=== PATIENT | female | born 1975 | race Caucasian/White ===

== ENCOUNTER 2016-06-19 01:37 | Observation (INO) ==
[2016-06-19] MEDS ORDERED: ASPIRIN PO STA (01:46)
[2016-06-19] MEDS ORDERED: ZOFRAN IV ONE ×2 (01:47→02:12)
--- NOTE | 2016-06-19 01:47 | PROVIDER DOCUMENTATION ---
HPI-Chest Pain <AriannaEleazar TonnyFrancis - Last Filed: 06/19/16 05:07> - General Source: patient - History of Present Illness-CP Location: reports: central Chest Pain Radiation: reports: shoulders (SHOULDER BLADES) Quality of Pain: reports: none Severity in ED: moderate Onset/Duration: 4-6 hours ago Timing: still present Context/Activities at Onset: reports: light activity Modifying Factors: improves with: nothing Similar Symptoms Previously?: No Recently Seen Here or By Another Healthcare Provider: No <Triston Mcintyre - Last Filed: 06/21/16 14:41> - General Chief Complaint: Chest Pain Stated Complaint: CHEST PAIN Time Seen by Provider: 06/19/16 01:41 Allergies/Adverse Reactions: Patient Allergies Allergy/AdvReac Type Severity Reaction Status Date / Time No Known Allergies Allergy Verified 06/19/16 01:44 Home Medications: Levothyroxine Sodium [Synthroid] 88 mcg PO DAILY 06/19/16 Omeprazole 20 mg PO DAILY 06/19/16 - History of Present Illness-CP Nature of Presenting Problem: 41 YOWF PRESENTS TO ED WITH C/O C/P THAT STARTED AROUND 5:30 THIS EVENING. PT STATES ITS MORE LIKE PRESSURE IN THE CENTER OF HER CHEST, THAT RADIATES THROUGH TO HER SHOULDER BLADES. PT IS NAUSEATED AND HAS HAD 1 EPISODE OF VOMITING IN THE ED. (Triston Mcintyre) Review of Systems - Adult - REVIEW OF SYSTEMS - ADULT Constitutional: denies: chills, fever Eyes: reports: no symptoms reported Ears, Nose, Mouth & Throat: reports: no symptoms reported Cardiovascular: reports: chest pain. denies: palpitations, syncope Respiratory: denies: cough, shortness of breath, wheezing Gastrointestinal: reports: nausea, vomiting. denies: abdominal pain, diarrhea Genitourinary: reports: no symptoms reported Musculoskeletal: denies: back pain, neck pain Integumentary: reports: no symptoms reported Neurological: denies: dizziness/vertigo, headache/migraines, syncope Psychiatric: reports: no symptoms reported Endocrine: reports: no symptoms reported Hematologic/Lymphatic: reports: no symptoms reported Allergic/Immunologic: reports: no symptoms reported All Other Systems: Reviewed and Negative <Triston Mcintyre - Last Filed: 06/21/16 14:41> Past History - Adult - PAST MEDICAL HISTORY-ADULT Review of Records: reports: Nursing Assessment Review, Medications Reviewed Gastrointestinal: reports: GERD Endocrine/Immune: reports: thyroid disorder - PRIOR SURGERIES/PROCEDURES Surgical/Procedure History: reports: - IMMUNIZATION STATUS Childhood Immunizations: See Nurse Assessment Flu Vaccine: See Nurse Assessment - SOCIAL HISTORY Smoking: denies Substance Use: denies Alcohol Use Frequency: never Living Situation: family <Triston Mcintyre - Last Filed: 06/21/16 14:41> Physical Exam-General - CONSTITUTIONAL General Appearance: alert, mild distress - EYES Eyes: PERRL/EOMI, pink conjunctivae - HEAD, EARS, NOSE, MOUTH & THROAT HENMT: normocephalic/atraumatic, moist mucous membranes - NECK Neck: non-tender, full range of motion, supple - RESPIRATORY Respiratory: chest non-tender, lungs clear, normal breath sounds - CARDIOVASCULAR Cardiovascular: normal peripheral pulses, regular rate, rhythm - GASTROINTESTINAL (ABDOMEN) Abdominal Exam: normal bowel sounds, non tender, soft - LYMPHATIC Lymphatic: no adenopathy - MUSCULOSKELETAL Back Exam: normal inspection, no CVA tenderness, no vertebral tenderness Extremity: normal range of motion, non-tender - SKIN Integumentary: normal color, normal turgor, warm/dry - NEUROLOGIC Neurologic: grossly normal - PSYCHIATRIC Psych/Mental Status: oriented x 3 <Triston Mcintyre - Last Filed: 06/21/16 14:41> Progress - REASSESSMENT Reassessment #1 Time Reassessed: 04:06 (pain and nausea much better) Status: improving - CT/MRI 1 CT Study: Angiogram (no PE or other lung pathology) Impression: Normal 2 CT Study: Abdomen (small left ovarian cyst, ( i thought I could see 2 tiny gallstones)) - CONSULTS/PCP/HOSPITALIST Notification #1 *Consult/PCP/Hospitalist*: Dr León Time Discussed: 05:09 Consult Disposition: Admit <Eleazar Keller - Last Filed: 06/19/16 05:07> - EKG 1 Time of EKG reading by physician:: 01:41 EKG Read and Signed by:: Eleazar Keller EKG Interpretation (*Must complete 3 of following elements*): Abnormal Rate: 93 Rhythm: SINUS RHYTHM W/ SHORT FL [place]: normal Comments: LOW VOLTAGE QRS. - XRAY 1 XRAY: Bilateral XRAY Study: Chest XRAY Interpretation: NORMAL <Triston Mcintyre - Last Filed: 06/21/16 14:41> - PLAN OF CARE/RESULTS Progress/Plan/Lab Results: Laboratory Tests 06/19/16 06/19/16 06/19/16 01:50 01:50 01:50 WBC RBC Hgb Hct MCV MCH MCHC RDW Std Deviation Plt Count MPV Immature Gran % (Auto) Neut % (Auto) Lymph % (Auto) [place] % (Auto) Eos % (Auto) Baso % (Auto) Immature Gran # (Auto) Neut # (Auto) Lymph # (Auto) [place] # (Auto) Eos # (Auto) Baso # (Auto) PT INR APTT (Factor Assay) D-Dimer Sodium 139 Potassium 4.0 Chloride 101 Carbon Dioxide 25 Anion Gap 13 BUN 12 Creatinine 0.8 Estimated GFR/1.73 m2 > 60 BUN/Creatinine Ratio 15 Glucose 143 H Calculated Osmolality 280 Calcium 9.3 Magnesium 2.3 Total Bilirubin 1.10 H AST 501 H ALT 227 H Alkaline Phosphatase 213 H Creatine Kinase 119 Troponin T < 0.010 Twi-P-Xzcmrgmcuwm Pept 68 Total Protein 8.1 Albumin 4.3 Globulin 4.0 Albumin/Globulin Ratio 1.0 Lipase 06/19/16 06/19/16 06/19/16 01:50 01:50 01:50 WBC 14.30 H RBC 5.04 Hgb 13.2 Hct 41.3 MCV 81.9 MCH 26.2 L MCHC 32.0 L RDW Std Deviation 15.5 H Plt Count 443 H MPV 9.6 Immature Gran % (Auto) 0.2 Neut % (Auto) 78.7 H Lymph % (Auto) 15.0 L [place] % (Auto) 5.9 Eos % (Auto) 0.1 Baso % (Auto) 0.1 Immature Gran # (Auto) 0.03 Neut # (Auto) 11.26 H Lymph # (Auto) 2.14 [place] # (Auto) 0.84 H Eos # (Auto) 0.01 Baso # (Auto) 0.02 PT 12.5 INR 0.90 APTT (Factor Assay) 25.4 D-Dimer 2.15 H Sodium Potassium Chloride Carbon Dioxide Anion Gap BUN Creatinine Estimated GFR/1.73 m2 BUN/Creatinine Ratio Glucose Calculated Osmolality Calcium Magnesium Total Bilirubin AST ALT Alkaline Phosphatase Creatine Kinase Troponin T Fvi-I-Dlsjwoccjtx Pept Total Protein Albumin Globulin Albumin/Globulin Ratio Lipase 31 Orders Category Date Time Status Admit - [facility] Routine AdmDCTranf 06/19/16 05:01 Ordered Activity - Bed Rest with BRP ORDERED Care 06/19/16 05:00 Active Call Admitting on Arrival AT ADMISSION Care 06/19/16 05:01 Active Cardiac Monitoring DIRECTED Care 06/19/16 01:46 Active Saline Loc NOW Care 06/19/16 01:46 Active Vital Signs Order ARRIVAL TO ROOM Care 06/19/16 05:00 Active NPO Diet 06/19/16 05:02 Active ABD/PELVIS/PULM ARTERIES [CT] Stat Exams 06/19/16 03:02 Taken CHEST-2 VIEWS [RAD] Stat Exams 06/19/16 01:46 Taken CBC WITH ELECTRONIC DIFF [HEME] Stat Lab 06/19/16 01:50 Completed CK PROFILE [SP CHEM] Stat Lab 06/19/16 01:50 Completed COMPREHENSIVE METABOLIC PANEL [CHEM] Stat Lab 06/19/16 01:50 Completed D-DIMER PL [COAG] Stat Lab 06/19/16 01:50 Completed LIPASE [CHEM] Stat Lab 06/19/16 01:50 Completed MAGNESIUM [CHEM] Stat Lab 06/19/16 01:50 Completed PRO B-NATRIURETIC PEPTIDE Stat Lab 06/19/16 01:50 Com[address]IME WITH INR PL [COAG] Stat Lab 06/19/16 01:[address] [COAG] Stat Lab 06/19/16 01:50 Completed TROPONIN T Stat Lab 06/19/16 01:50 Completed 0.9% Sodium Chloride Inj [Ns] 1,000 ml Med 06/19/16 05:00 Active IV 100 mls/hr Aspirin Med 06/19/16 01:46 Discontinued 325 mg PO STAT STA Hydromorphone [Dilaudid] Med 06/19/16 03:02 Discontinued 1 mg IV NOW ONE Hydromorphone [Dilaudid] Med 06/19/16 05:00 Active 1 mg IV Q2HR PRN Morphine Med 06/19/16 01:52 Discontinued 4 mg IV NOW ONE Morphine Med 06/19/16 02:12 Discontinued 4 mg IV NOW ONE Ondansetron [Zofran] Med 06/19/16 01:47 Discontinued 4 mg IV NOW ONE Ondansetron [Zofran] Med 06/19/16 02:12 Discontinued 4 mg IV NOW ONE Ondansetron [Zofran] Med 06/19/16 05:00 Active 4 mg IV Q4H PRN PRN Promethazine [Phenergan] Med 06/19/16 05:03 Discontinued 25 mg IV NOW ONE Sodium Chloride 0.9% Med 06/19/16 05:03 Discontinued 10 ml INJ NOW ONE EKG [EKG] Stat Ther 06/19/16 01:45 Ordered Transfer/Admit Order [TRANSFER] Routine Transfer 06/19/16 05:02 Ordered Vital Signs Temp Pulse Resp BP Pulse Ox 06/19/16 02:15 52 L 21 134/81 100 06/19/16 01:40 98.1 F 70 20 133/89 100 No Known Allergies Allergy (Verified 06/19/16 01:44) Levothyroxine Sodium [Synthroid] 88 mcg PO DAILY 06/19/16 Omeprazole 20 mg PO DAILY 06/19/16 Sucralfate [Carafate] 1 gm PO TID 06/19/16 Dietary Diet NPO Start SunJun 19 050 Laboratory 06/19/16 06/19/16 06/19/16 01:50 01:50 01:50 WBC 14.30 H RBC 5.04 Hgb 13.2 Hct 41.3 MCV 81.9 MCH 26.2 L MCHC 32.0 L RDW Std Deviation 15.5 H Plt Count 443 H MPV 9.6 Immature Gran % (Auto) 0.2 Neut % (Auto) 78.7 H Lymph % (Auto) 15.0 L [place] % (Auto) 5.9 Eos % (Auto) 0.1 Baso % (Auto) 0.1 Immature Gran # (Auto) 0.03 Neut # (Auto) 11.26 H Lymph # (Auto) 2.14 [place] # (Auto) 0.84 H Eos # (Auto) 0.01 Baso # (Auto) 0.02 PT 12.5 INR 0.90 APTT (Factor Assay) 25.4 D-Dimer 2.15 H Sodium Potassium Chloride Carbon Dioxide Anion Gap BUN Creatinine Estimated GFR/1.73 m2 BUN/Creatinine Ratio Glucose Calculated Osmolality Calcium Magnesium Total Bilirubin AST ALT Alkaline Phosphatase Creatine Kinase Troponin T Pxa-Z-Pfnpqkzkozz Pept Total Protein Albumin Globulin Albumin/Globulin Ratio Lipase 31 06/19/16 06/19/16 06/19/16 01:50 01:50 01:50 WBC RBC Hgb Hct MCV MCH MCHC RDW Std Deviation Plt Count MPV Immature Gran % (Auto) Neut % (Auto) Lymph % (Auto) [place] % (Auto) Eos % (Auto) Baso % (Auto) Immature Gran # (Auto) Neut # (Auto) Lymph # (Auto) [place] # (Auto) Eos # (Auto) Baso # (Auto) PT INR APTT (Factor Assay) D-Dimer Sodium 139 Potassium 4.0 Chloride 101 Carbon Dioxide 25 Anion Gap 13 BUN 12 Creatinine 0.8 Estimated GFR/1.73 m2 > 60 BUN/Creatinine Ratio 15 Glucose 143 H Calculated Osmolality 280 Calcium 9.3 Magnesium 2.3 Total Bilirubin 1.10 H AST 501 H ALT 227 H Alkaline Phosphatase 213 H Creatine Kinase 119 Troponin T < 0.010 Rup-W-Zovfgnbmsle Pept 68 Total Protein 8.1 Albumin 4.3 Globulin 4.0 Albumin/Globulin Ratio 1.0 Lipase (Eleazar Keller) Departure - Departure Time of Disposition Order: 05:08 Certified Medical Emergency: Emergent <Eleazar Keller - Last Filed: 06/19/16 05:07> - Departure Time of Disposition Order: 19:23 Certified Medical Emergency: Emergent <Triston Mcintyre - Last Filed: 06/21/16 14:41> - Departure DIAGNOSIS: Chest pain Qualifiers: Chest pain type: unspecified Qualified Code(s): R07.9 - Chest pain, unspecified Disposition: ADMITTED INPATIENT 09 Condition: Fair Attestation - Scribe Verification/Attestation Scribe:: Triston Mcintyre Acting as Scribe for:: Eleazar Keller Scribe documention review:: This chart was documented by a scribe and accurately reflects the service the provider performed and the decisions made by the provider. <Triston Mcintyre - Last Filed: 06/21/16 14:41> Physician Attestation
[2016-06-19] MEDS ORDERED: MORPHINE IV ONE ×2 (01:52→02:12)
[2016-06-19 02:04] LABS: MANUAL DIFF NEEDED? NO
[2016-06-19 02:14] LABS: BASO% 0.1 % (0.0-0.8); EOS# 0.01 X1000 (0.0-0.7); EOS% 0.1 % (0.0-10.0); HEMATOCRIT 41.3 % (37.0-47.0); HEMOGLOBIN 13.2 g/dL (12.0-16.0); IMM GRAN# 0.03 X1000 (0.0-0.04); IMM GRAN% 0.2 % (0.0-0.5); LYMPH# 2.14 X1000 (1.2-3.4); MCH 26.2 PG (27-31); MCV 81.9 FL (81-99); MONO# 0.84 X1000 (0.11-0.59); MONO% 5.9 % (1.7-9.3); MPV 9.6 FL (7.4-10.4); NEUT% 78.7 % (42.2-75.2); PLT 443 X1000 (130-400); RBC 5.04 XMIL (4.2-5.4)
[2016-06-19 02:36] LABS: INR 0.9 (0.86-1.15); PROTIME 12.5 Seconds (12.1-15.5)
[2016-06-19 02:37] LABS: PTT PL 25.4 Seconds (22.6-43.9)
[2016-06-19 02:54] LABS: AGAP 13; ALBUMIN 4.3 g/dL (3.5-5.0); ALKALINE PHOSPHATASE 213 U/L (32-104); BUN 12 mg/dL (8-22); CALCIUM 9.3 mg/dL (8.8-10.2); CHLORIDE 101 mmol/L (98-107); CK PROFILE 119 U/L (24-173); COSMO 280; GOT 501 U/L (10-30); GPT 227 U/L (10-36); MAGNESIUM 2.3 mg/dL (1.5-2.7); SODIUM 139 mmol/L (136-145); TCO2 25 mmol/L (25-35); TOTAL PROTEIN 8.1 g/dL (6.3-8.3)
[2016-06-19] MEDS ORDERED: DILAUDID IV ONE ×2 (03:02→05:11)
[2016-06-19] MEDS ORDERED: DILAUDID IV PRN (05:00)
[2016-06-19] MEDS ORDERED: ZOFRAN IV PRN (05:00)
[2016-06-19] MEDS ORDERED: SODIUM CHLORIDE 0.9% INJ ONE (05:03)
[2016-06-19] MEDS ORDERED: PHENERGAN IV ONE (05:03)
--- NOTE | 2016-06-19 05:32 | EKG Report ---
Test Performed on : 06/19/2016 01:40:40 AM Test Reason : ER10 Blood Pressure : / mmHG Vent. Rate : 093 BPM Atrial Rate : 093 BPM P-R Int : 106 ms QRS Dur : 070 ms QT Int : 376 ms P-R-T Axes : 030 032 046 degrees QTc Int : 467 ms Sinus rhythm. with short [place] Low voltage QRS Cannot rule out Anterior infarct , age undetermined Abnormal ECG No previous ECGs available Unconfirmed Result
--- NOTE | 2016-06-19 07:31 | Diag Imaging Result Document ---
PROCEDURE NAME: ABD/PELVIS/PULM ARTERIES - 06/19/2016 CT CHEST, ABDOMEN AND PELVIS WITH INTRAVENOUS CONTRAST: TECHNIQUE: Dose reduction technique not used. COMPARISON: No comparison films. CT CHEST WITH CONTRAST: FINDINGS: No thoracic aortic aneurysm or dissection. Normal opacification of the pulmonary arteries and their major branches. No pleural effusions. There are calcified subcarinal lymph nodes. No consolidation. No bronchiectasis. No lung mass. IMPRESSION: 1. No aortic aneurysm or dissection. 2. No pulmonary emboli. 3. No pneumonia. CT ABDOMEN AND PELVIS AND PELVIS WITH INTRAVENOUS CONTRAST: FINDINGS: There is mild fatty infiltration of the liver. No focal hepatic abnormalities. Normal spleen, pancreas, and adrenal glands. The gallbladder is mildly distended. No calcified stones or adjacent inflammation. Normal enhancement of the kidneys. No hydronephrosis. No aortic aneurysm or dissection. No bowel obstruction. Normal appendix. No abscess. There is a 3.2 cm left ovarian cyst. Normal right ovary and uterus. No free fluid in the pelvis. The urinary bladder is moderately distended and appears normal. IMPRESSION: 1. Fatty infiltration of the liver. 2. There is 3.2 cm left ovarian cyst. A preliminary report was given at 4:30 a.m.
--- NOTE | 2016-06-19 07:44 | Diag Imaging Result Document ---
PROCEDURE NAME: CHEST-2 VIEWS - 06/19/2016 FRONTAL AND LATERAL CHEST, TWO VIEWS: FINDINGS: The lungs are well expanded. The heart is not enlarged. The vessels are not distended. No pneumonia. No pleural effusions. IMPRESSION: No acute abnormality.
[2016-06-19] MEDS: DEMEROL IV PRN ×2 (09:09→18:35)
[2016-06-19] MEDS: NS 1,000 ML IV SCH ×3 (09:13→18:35)
[2016-06-19] MEDS: ROCEPHIN 1 GM/NS 50 ML IV SCH (09:14)
[2016-06-19] MEDS ORDERED: SOLU-MEDROL IV ONE (09:24)
[2016-06-19] MEDS ORDERED: BENADRYL IM ONE (09:24)
--- NOTE | 2016-06-19 15:07 | HISTORY AND PHYSICAL ---
CHIEF COMPLAINT: Substernal chest pain and vomiting. PRESENT ILLNESS: This is the 1st recent [facility] admission for this 41-year-old white female who had several episodes of vomiting this morning, but no hematemesis. She has had no fever. She presented to the emergency room where evaluation revealed a normal CT of her abdomen and pelvis except for mildly enlarged gallbladder. There were laboratory abnormalities including a white blood count elevated at 14,300 and abnormal liver functions with total bilirubin 1.1, AST 501, ALT 227, alkaline phosphatase 213. BUN was 12 and creatinine 0.8. Glucose was 143. She is believed to have acute cholecystitis and is admitted for treatment to relieve pain, intravenous antibiotics, and for surgical consultation. PAST MEDICAL HISTORY: No recent hospitalizations or surgery. She had excision of a ganglion cyst on the left wrist by Dr. Stallings. PRESENT MEDICATIONS: Synthroid 88 mcg 1 daily. ALLERGIES: None known. REVIEW OF SYSTEMS: No recent vomiting until the present illness. She was feeling well yesterday. SOCIAL HISTORY: and lives with her . There is no history of smoking or alcohol usage. PHYSICAL EXAMINATION: VITAL SIGNS: Temperature 97.7 degrees, heart rate 57, respirations 16, blood pressure 150/83, O2 saturation 100% on room air. GENERAL: Patient is a well-developed, well-nourished, white female, in no apparent distress. Initially in the emergency room Dilaudid did not relieve the pain. She was then given Demerol 75 mg IV which adequately provided pain relief. Zofran helped the nausea. HEENT: Pupils equal, round, and reactive to light. Pharynx benign with no erythema or exudate. NECK: Supple with no mass or lymphadenopathy. HEART: Regular in rate and rhythm with no murmur, rub, or gallop. There is no chest wall tenderness to palpation. ABDOMEN: Soft with no mass or organomegaly. EXTREMITIES: No cyanosis, clubbing, or edema. RECTAL AND GENITALIA: Deferred. IMPRESSIONS: 1. Possible acute cholecystitis. 2. Chest pain. 3. Elevation in liver function study. PLAN: Admit for further evaluation and surgical consultation with Dr. Jin.
--- NOTE | 2016-06-19 19:23 | CONSULTATION ---
DATE OF CONSULTATION: 06/19/2016 HISTORY OF PRESENT ILLNESS: Ms. Linda Umanzor is a 41-year-old, white female patient of Dr. 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 Laboratory data was performed. She had an elevated white count of 14 and her liver function tests were elevated so she underwent a CT scan of her abdomen and pelvis which suggested a mildly enlarged gallbladder but there was a question of whether there were any stones. She was admitted to Dr. Comer for further treatment of her symptoms and we were asked to evaluate her for possible cholecystectomy. PAST MEDICAL HISTORY: Excision of a ganglion cyst left wrist by Dr. Stallings. MEDICATIONS: Synthroid. ALLERGIES: No known drug allergies. SOCIAL HISTORY: She is and lives with her . She had her sisters at the bedside. She does not smoke or use alcohol. REVIEW OF SYSTEMS: A 14-point review of systems was performed. She does have a history of gastroesophageal reflux and she is on Protonix. She also took some Carafate yesterday. PHYSICAL EXAMINATION: General: Ms. Umanzor is overweight. She is a middle aged female. She is in no acute distress. HEENT: No jaundice. No oral lesions. Satisfactory dentition. No cervical or supraclavicular lymphadenopathy. Heart: Regular rate. Lungs: Clear to auscultation and percussion bilaterally. Abdomen: Soft. She is only mildly tender in the upper abdomen. There is no palpable mass. No previous scar. No evidence of hernia. No costovertebral tenderness. Rectal/Vaginal Examinations: Not performed. She does have palpable peripheral pulses. No peripheral edema. Neurological: She is alert and oriented x3, and appropriate. LABS: Her liver function tests were slightly elevated. A CT scan of her abdomen and pelvis suggested a slightly enlarged gallbladder with questionable stones. They were not reported by the radiologist. IMPRESSION: Chronic cholecystitis which is symptomatic. PLAN: Dr. Comer is going to check liver function test tomorrow. An EKG in the ER seemed to be normal. If her symptoms persist, we will proceed with laparoscopic cholecystectomy tomorrow early afternoon. I have discussed the procedure in detail with her and her family at the bedside including its risks of bleeding, infection, injury to the extrahepatic bile ducts requiring reoperation, conversion of laparoscopic to open cholecystectomy, bile leak requiring reoperation for drainage, injury to intra-abdominal contents for trocar placement. She understands the need for surgery and its risks, and she wants to proceed. We will allow her to eat tonight and make her NPO after midnight.
[2016-06-20] MEDS: NS 1,000 ML IV SCH ×4 (05:10→16:43)
[2016-06-20 06:53] LABS: MANUAL DIFF NEEDED? NO
[2016-06-20 06:55] LABS: BASO% 0.1 % (0.0-0.8); EOS# 0.04 X1000 (0.0-0.7); EOS% 0.3 % (0.0-10.0); HEMOGLOBIN 10.8 g/dL (12.0-16.0); IMM GRAN# 0.02 X1000 (0.0-0.04); IMM GRAN% 0.1 % (0.0-0.5); LYMPH# 3.87 X1000 (1.2-3.4); LYMPH% 26.6 % (20.5-51.1); MCH 25.9 PG (27-31); MCHC 30.9 g/dL (33-37); MCV 83.9 FL (81-99); MONO# 1.05 X1000 (0.11-0.59); MONO% 7.2 % (1.7-9.3); MPV 9.7 FL (7.4-10.4); NEUT% 65.7 % (42.2-75.2); PLT 391 X1000 (130-400); RBC 4.17 XMIL (4.2-5.4)
[2016-06-20 07:10] LABS: ALBUMIN 3.5 g/dL (3.5-5.0); DIRECT BILIRUBIN 0.2 mg/dL (0.00-0.20); TOTAL BILIRUBIN 0.55 mg/dL (0.20-1.00)
--- NOTE | 2016-06-20 08:13 | PROGRESS NOTE ---
DATE: 06/20/2016 VITAL SIGNS: Temperature 97.8 degrees, heart rate 65, respirations 21, blood pressure 126/68, O2 saturation 98% on room air. LABORATORY: White blood count 14,500, hematocrit 35. AST improved but elevated at 185. ALT 245. Alkaline phosphatase 199. Amylase 341. EXAMINATION: Mild epigastric tenderness. She rested fairly well last night and required 1 dose of pain medication, Demerol. She has a little pain into her right back this morning but no nausea. Discussion was made with Dr. Jin last night. Laparoscopic cholecystectomy is planned for today.
[2016-06-20] MEDS: ROCEPHIN 1 GM/NS 50 ML IV SCH (08:32)
[2016-06-20] MEDS ORDERED: SENSORCAINE 0.25%/EPI 1:200,000 ONE (12:34)
[2016-06-20] MEDS ORDERED: LR 1,000 ML ONE (12:35)
[2016-06-20] MEDS ORDERED: SODIUM CHLORIDE 0.9% ONE (12:35)
[2016-06-20] MEDS ORDERED: FENTANYL ONE (14:29)
[2016-06-20] MEDS ORDERED: DIPRIVAN 1% ONE (14:29)
--- NOTE | 2016-06-20 15:23 | Diag Imaging Result Document ---
PROCEDURE NAME: OPERATIVE CHOLANGIOGRAM - 06/20/2016 INTRAOPERATIVE CHOLANGIOGRAM, 2 VIEWS: FINDINGS: There are no filling defects and no apparent obstruction to passage of contrast. IMPRESSION: No definite evidence of retained stones.
[2016-06-20] MEDS ORDERED: XYLOCAINE-MPF 2% ONE (15:30)
[2016-06-20] MEDS ORDERED: TORADOL ONE (15:30)
[2016-06-20] MEDS ORDERED: ZOFRAN ONE (15:30)
[2016-06-20] MEDS ORDERED: DECADRON ONE (15:31)
[2016-06-20] MEDS ORDERED: LR 2,000 ML ONE (15:31)
[2016-06-20] MEDS ORDERED: ANESTHESIA PB SET 88 IN 5742 ONE (15:31)
[2016-06-20] MEDS: MORPHINE ONE ×2 (15:35→15:47)
[2016-06-20] MEDS ORDERED: MORPHINE ONE (16:05)
--- NOTE | 2016-06-20 16:36 | OPERATIVE NOTE ---
PROCEDURE DATE: 06/20/2016 PREOPERATIVE DIAGNOSIS: Chronic cholecystitis with cholelithiasis. POSTOPERATIVE DIAGNOSIS: Chronic cholecystitis with cholelithiasis. PRINCIPAL PROCEDURE: Laparoscopic cholecystectomy with intraoperative cholangiogram. SURGEON: Sabrina Jin MD. ANESTHESIA: General in addition to local anesthetic. ESTIMATED BLOOD LOSS: 25 mL. DRAINS: None. INDICATIONS: Gela Umanzor is a 41-year-old, white female patient of Dr. Wallace Comer who was admitted with epigastric and chest pain that radiated to her back. It was accompanied by nausea and even vomiting. Her liver function tests were elevated. She was admitted through our emergency department and a CT scan documented a dilated gallbladder. It was felt that she had symptomatic gallbladder disease, and cholecystectomy was recommended. FINDINGS: She had small cholesterol stones in her gallbladder and her gallbladder was chronically inflamed. Her liver was healthy as was the surface of her bowel. No other intra-abdominal pathology was noted. We felt we did the operation safely. We did do an intraoperative cholangiogram, which showed free flow of the dye into the duodenum without evidence of extrahepatic stones or obstruction. There was no abnormal dilatation of the extrahepatic bile ducts. DESCRIPTION OF PROCEDURE: The patient was brought to the operating room, placed supine, received general anesthesia, was intubated. She was already on IV Zosyn. Her abdomen was prepped and draped in a sterile field. We did not use a Mack catheter tube. We did make a curvilinear incision below the umbilicus with a 15 blade scalpel. A Veress needle was introduced through this incision into the abdomen. Pneumoperitoneum was established. We then removed the Veress needle and placed a blunt 11 mm trocar through this incision into the abdomen. The camera placed through this port, and the abdomen was explored for injury, there was none. Three other trocars were placed along the right costal margin under direct vision of the camera. We placed an 11 mm trocar just to the right of the midline and two 5 mm trocars in our midclavicular and anterior axillary lines. Through our most lateral port, the gallbladder was grasped and retracted superiorly along with the right lobe of the liver. Another grasper was used to grab the body of the gallbladder and the triangle of Calot was bluntly dissected. We identified the cystic duct along its length and also the cystic artery. We placed a clip at the cystic artery gallbladder junction. We placed 2 clips more proximally on the cystic artery and divided the cystic artery between clips. We placed a clip at the cystic duct gallbladder junction. We made a small incision in the cystic duct and used a taut intraoperative cholangiogram catheter to perform the cholangiogram with the findings above. Once the cholangiogram was completed, we removed the catheter and 2 clips were placed proximally on the cystic duct. We divided the cystic duct between clips using hook scissors. The spatula cautery was used to remove the gallbladder from the liver bed and then we removed the gallbladder through our umbilical incision. We placed the trocar back through this incision and the area of operation was thoroughly inspected, irrigated, and the irrigation was removed with suction. There was no evidence of ongoing bleeding or bile leak and we did not leave a drain. All trocars removed under direct vision of the camera. The pneumoperitoneum was allowed to dissipate. I used a [id number] 2-0 Vicryl stitch to reapproximate the fascia at the umbilicus and all skin was closed with 4-0 Monocryl subcuticular stitches. Dressings were applied. She tolerated the procedure well with plans for her to go to the recovery room and then return to her room on the floor with possible discharge later today.
[2016-06-20 18:48] VITALS: BP 143/85
[2016-06-20] MEDS ORDERED: NORCO-5 PO PRN (19:10)
--- NOTE | 2016-06-20 22:02 | DISCHARGE SUMMARY ---
ADMISSION DATE: 06/19/2016 DISCHARGE DATE: 06/20/2016 FINAL DIAGNOSES: Acute cholecystitis, cholelithiasis, acute pancreatitis, elevated liver function studies, hypothyroidism, dyspepsia. CONSULTATION: Sabrina Jin M.D. PROCEDURE: Laparoscopic cholecystectomy and intraoperative cholangiogram. HISTORY: This is the first recent [facility] admission for this 41-year-old, white female with vomiting and chest pain who presented to the emergency room. A CT of the abdomen revealed mild enlargement of the gallbladder, but no definite stones. There was no evidence of biliary obstruction. She was admitted for evaluation and treatment including surgical consultation. INITIAL LABORATORY: Hemoglobin 13.2, hematocrit 41.3, white blood count 14,300 with 79% neutrophils. Glucose was elevated at 143, total bilirubin 1.1, AST 501, ALT 227, alkaline phosphatase 213, CK 119, troponin T less than 0.01. ProBNP 68. Lipase 31. HOSPITAL COURSE: She was placed on intravenous Rocephin and fluids. Dilaudid IV 1 mg provided no relief. She was able to have relief with Demerol 75 mg IV. Discussion was made with Dr. Jin who felt that she had chronic intermittent cholecystitis. Repeat liver functions this morning revealed bilirubin 0.55, AST 185, ALT 245, alkaline phosphatase 199, amylase 341. She underwent laparoscopic cholecystectomy about 1 o'clock today. Operative course was uncomplicated. Intraoperative cholangiogram was done revealing no retained stones. There were a couple of small stones in the gallbladder and evidence of chronic inflammation. Postoperative course has been uncomplicated. She is taking clear liquids without nausea. She has urinated without problems postop. She is discharged home on her usual medications, Synthroid and omeprazole. She was given a prescription for [place] 7.5/325 (20) 1 q.4 hours p.r.n. pain, and Zofran 4 mg (12) 1 q.4 hours p.r.n. nausea. She is to return to the office on Sunday. Repeat liver functions and amylase will be done at that time.
== END 2016-06-20 19:23 | disposition home or self-care (01) ==
LOC: P.ED 01:37 → 3N 01:38 → UNDODISOB 06-20 18:48
PROVIDERS: ADMIT Family Medicine; ATTEND Family Medicine
DX: K80.00 Calculus of gallbladder with acute cholecystitis without obstruction (principal); K85.90 Acute pancreatitis without necrosis or infection, unspecified; K21.9 Gastro-esophageal reflux disease without esophagitis; E03.9 Hypothyroidism, unspecified; R07.9 Chest pain, unspecified; R11.2 Nausea with vomiting, unspecified; R94.5 Abnormal results of liver function studies; R10.13 Epigastric pain; D72.829 Elevated white blood cell count, unspecified; E66.3 Overweight; Z68.35 Body mass index [BMI] 35.0-35.9, adult; Z79.899 Other long term (current) drug therapy
CPT/HCPCS: 71020; 71275; 74177; 74300; 80053; 80076; 82150; 82550; 83690; 83735; 83880; 84484; 85025; 85379; 85610; 85730; 88304; 93005; 96374; 96375; 96376; C1751; J0696; J1100; J1170; J1200; J1885; J2175; J2270; J2405; J2550; J2930; J3010; J7030; J7120; Q9966; Q9967